=== PATIENT | female | born 2000 | race Hispanic/Latino ===

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

== ENCOUNTER 2019-10-02 14:54 | Outpatient (CLI) | payer MEDICAID ==
--- NOTE | 2019-10-02 15:53 | ULT ---
OB ULTRASOUND COMPLETE GREATER THAN 14 WEEKS: HISTORY: Evaluate anatomy and cervical length. FINDINGS: Single viable intrauterine fetus in vertex presentation. Placenta is anterior. heart rate 144 b.p.m. Amniotic fluid index 12.9 cm. Cervical length equals 3.9 cm. Anatomy: Visualized brain, 4-chamber heart, 3-vessel cord, stomach, bladder, kidneys, spine, and extremi ty regions are unremarkable as visualized. Biometry: BPD 5.0 cm-21 weeks 2 days Head circumference 19.1 cm-21 weeks 3 days Abdominal circumference 15.9 cm-21 weeks 1 day Femur length 3.5 cm-21 weeks 0 days IMPRESSION: Single viable intrauterine fetus 21 weeks 2 days, estimated date of delivery 02/10/2020, estimated fet al weight 393 gm. POS: TPC
== END 2019-10-02 14:55 | disposition home or self-care (01) ==
LOC: BICULT 14:54
PROVIDERS: ATTEND Family Medicine
DX: Z34.82 Encounter for supervision of other normal pregnancy, second trimester (principal); Z3A.21 21 weeks gestation of pregnancy
CPT/HCPCS: 76805

== ENCOUNTER 2019-12-07 11:59 | Day surgery (SDC) | payer MEDICAID, OTHER ==
[2019-12-07 13:26] VITALS: BMI 26.9
[2019-12-07] MEDS ORDERED: hydrALAZINE 20 MG/ML VIAL SLOW IVP PRN (14:04)
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
== END 2019-12-07 14:00 | disposition critical access hospital (66) ==
LOC: ERS 11:59 → L&D/OP 12:47
PROVIDERS: ATTEND Family Medicine
DX: O99.89 Other specified diseases and conditions complicating pregnancy, childbirth and the puerperium (principal); R10.2 Pelvic and perineal pain; O36.8130 Decreased fetal movements, third trimester, not applicable or unspecified; O99.513 Diseases of the respiratory system complicating pregnancy, third trimester; J45.909 Unspecified asthma, uncomplicated; Z79.899 Other long term (current) drug therapy; Z3A.33 33 weeks gestation of pregnancy; V89.2XXA Person injured in unspecified motor-vehicle accident, traffic, initial encounter
CPT/HCPCS: 99281; 99283

== ENCOUNTER 2020-01-24 12:38 | Day surgery (SDC) | payer OTHER ==
[2020-01-24 13:00] VITALS: BMI 27.4
--- NOTE | 2020-01-24 13:44 | PDOC.LDHP ---
Labor and Delivery H&P Chief complaint: other HPI: Pt is a 19 yo at 36.4 wks, LUZ MARIA 02/17/20, who presents for cramping in her legs, pelvic pressure with urination. She endorsed 3 week history of white discharge and a recent 1 week change in color to yellow/green without foul smell. She denies LOF, vaginal bleeding, hematuria, dysuria, increased urinary frequency, fever, chills, contractions. She has history of gonorrhea and chlamydia a few years ago. No other significant history during . PCP: [facility] Due date: 02/17/20 Grav: 2 Para: 1 OB History Details: Prior Current complications: none Past Medical History: asthma controlled with albuterol inhaler Current medications: none Previous surgical history: none Allergies/Adverse Reactions: Allergies Allergy/AdvReac Type Severity Reaction Status Date / Time No Known Allergies Allergy Verified 01/24/20 12:54 Social history: none (admitted to tobacco, alchol use prior to ) - Physical Exam Vital signs reviewed and normal: yes General: NAD Heart: RRR Lungs: CTAB Abdomen: other (pelvic TTP) Extremeties: no edema FHT: category 1, variability present - Vaginal Exam cm dilated: 2 Station: -3 - Plan Plan: observation in L&D -: 19 yo at 36.4 wks who presents for pelvic pressure w/ urination: # Term IUP 40/-3 # Vaginal Discharge, Pelvic Pressure # Hx of Gonorrhea, Chlamydia Infection - GCCH, VP3 pending - will not result for 24-48 hours. Pt has an appt with Dr. Byrd on 01/28/20. Follow up for results at this time. - UA WNL # Asthma - monitor # Pt unable to tolerate PNV's Dispo: discharge with close follow up to Dr. Byrd for results.
[2020-01-24 13:57] LABS: Bacteria/HPF None Seen HPF (None Seen); Bilirubin Negative (Negative); Blood, Urine 1+ (Negative); Clarity Clear (Clear); Glucose, Urine (Dipstick) Normal (Negative); Ketone, Urine Negative (Negative); Leukocyte Negative Leu/uL (Negative); Nitrite Negative (Negative); Protein, Urine (Dipstick) Negative (Neg-Trace); RBC/HPF 21-50 HPF (0-3); Specific Gravity, Urine 1.014 (1.002-1.036); Squamous Epithelial 0-3 HPF (0-3); Urobilinogen Normal mg/dL (Less than 2); WBC/HPF 0-3 HPF (0-3)
[2020-01-24 13:59] LABS: Urine Culture Reflex No No
[2020-01-26 21:08] LABS: GC by PCR Not Detected (NotDetected)
== END 2020-01-24 14:40 | disposition home or self-care (01) ==
LOC: L&D/OP 12:38
PROVIDERS: ATTEND Family Medicine
DX: O99.89 Other specified diseases and conditions complicating pregnancy, childbirth and the puerperium (principal); R10.2 Pelvic and perineal pain; N89.8 Other specified noninflammatory disorders of vagina; R25.2 Cramp and spasm; O99.513 Diseases of the respiratory system complicating pregnancy, third trimester; J45.909 Unspecified asthma, uncomplicated; Z87.891 Personal history of nicotine dependence; Z3A.36 36 weeks gestation of pregnancy
CPT/HCPCS: 81001; 87480; 87510; 87591; 87660; 99283

== ENCOUNTER 2020-02-06 14:32 | Day surgery (SDC) | payer OTHER ==
[2020-02-06] MEDS ORDERED: hydrALAZINE 20 MG/ML VIAL SLOW IVP PRN (15:24)
--- NOTE | 2020-02-06 15:25 | PDOC.LDHP ---
Labor and Delivery H&P Chief complaint: other (low back pain) HPI: 20 y/o @ 38.3 wks presents to L&D for low back pain that comes and goes for the day. The pain stolled and then came back more intense today. Pt states she took tylenol which did not help with the pain. @ 2 AM she woke up and noticed from mucus like vaginal d/c. denies vag irritation, pain, pressure or bleeding. Denies LOF, and does not think she is having ctx's. The pain does come and go and feels "tight in nature." Pt admits to decreased movements, last feeling her fetus move at 12 today. Pt was seen by Dr. Byrd on and reports her cervix exam to be a 2 at that time. PCP: [facility] Current gestational age (weeks): 38 (3 days ) Due date: 02/17/20 Grav: 2 Para: 1 Current complications: none Abnormal US findings: No (BPP 02/26 ) Past Medical History: no known medical problems Current medications: none (does not take pnv's) Previous surgical history: none Allergies/Adverse Reactions: Allergies Allergy/AdvReac Type Severity Reaction Status Date / Time No Known Allergies Allergy Verified 02/06/20 15:23 Social history: none (denies etoh, tobacco or drugs.) - Physical Exam Vital signs reviewed and normal: yes General: NAD Heart: RRR Lungs: CTAB Abdomen: gravid Extremeties: no edema FHT: category 1 (fht's) - Vaginal Exam cm dilated: 3 Effacement: 50% Station: -3 - Plan Plan: observation in L&D -: 20 y/o @ 38.3 presents to L&D with intermittent abd "tightness." 1. sIUP @ 38.3 ega - ctx Q3-4 min - FHT's 115 baseline with mod variability, accels present - SVE: /-3, plan to recheck in 2 hours. encouraged walking 2. contractions - TOCO monitoring - Q3-4 min 3. Decreased movements - BPP ordered: 02/26 - No movements felt since 12 today. Reports some movement after walking around the unit. Dispo: observe in L&D. Recheck SVE, if progressive change, admit for labor, d/c home if no change and fht reassuring with 02/26/ BPP. Care plan discussed with Dr. Vidales who is in agreement with above stated plan. Addendum - Attending - Attending Attestation Date/Time: 02/06/202107 I personally evaluated the patient and discussed the management with Dr. Hernandez. I agree with the History, Examination, Assessment and Plan documented above.
[2020-02-06 15:28] VITALS: BP 131/77; TEMP 98.3; BMI 30.3
--- NOTE | 2020-02-06 16:41 | PDOC.BPN ---
<Torri Hernandez - Last Filed: 02/06/20 16:40> - Brief Progress Note recheck cervix: SVE /-3, no change from previous check BPP 02/26 NST reactive send home with return precautions. Case discussed with Dr. Vidales who is in agreement with above plan. f/u with Dr. Byrd for routine pnc. <Rufino Vidales - Last Filed: 02/06/20 18:19> Addendum - Attending - Attending Attestation Date/Time: 02/06/20 840 I personally evaluated the patient and discussed the management with Dr. Hernandez. I agree with the History, Examination, Assessment and Plan documented above.
--- NOTE | 2020-02-07 00:28 | ULT ---
BIOPHYSICAL PROFILE: Date: 02/06/2020 INDICATION: Decreased movement. FINDINGS/IMPRESSION: Tone: 2 Breathin Movement: 2 Amniotic Fluid: 2 Total Score: 8/8 position: Vertex. Placenta: Anterior. Amniotic fluid: Adequate. HENOK recorded at 8.9 cm. heart rate: 158 bpm. POS: AGW
== END 2020-02-06 17:00 | disposition home health service (06) ==
LOC: L&D/OP 14:32
PROVIDERS: ATTEND Family Medicine
DX: O47.1 False labor at or after 37 completed weeks of gestation (principal); O99.89 Other specified diseases and conditions complicating pregnancy, childbirth and the puerperium; M54.5 Low back pain; O36.8130 Decreased fetal movements, third trimester, not applicable or unspecified; Z3A.38 38 weeks gestation of pregnancy; Z79.51 Long term (current) use of inhaled steroids
CPT/HCPCS: 76819

== ENCOUNTER 2020-02-07 17:27 | Inpatient (IN) | payer OTHER ==
[~2020-02-07 17:27] MED LIST: Bupivacaine HCl 0.5%/Epinephrine 1:200,000/PF 30 ml Vial ONE
[2020-02-07] MEDS ORDERED: hydrALAZINE 20 MG/ML VIAL SLOW IVP PRN ×2 (17:42→18:27)
--- NOTE | 2020-02-07 17:59 | PDOC.FPROB ---
FMR OB H&P: HPI - History of Present Illness Chief Complaint: leaking fluid Indentification: 20 yo at 38.4 wga History of Present Illness: Patient is here saying she woke up at 1645 and noticed her pants were soaked through with fluid. She smelled her pants and said it did not smell of urine. Since that time, she has noticed more leakage of fluid with each contraction. She feels her contractions are slightly more intense than before when she was here earlier today. She had timed two contractions around 1710 and they were 3 minutes apart. Otherwise, she denies loss of FM and VB. Primary Care Physician: Carson FMR OB H&P: Current - Care : 2 Para: 1001 Gestational age: 38.4 Due date: 02/17/2020 Dating Criteria: LMP Course/Complications: None. - OB Labs Blood type: O RH: positive Antibody Screen: negative HIV: negative RPR: negative HepBsAg: negative Rubella: immune GBS: negative Additional labs: history of positive gonorrhea, chlamydia, and trichomonas treated in this . FMR OB H&P: History - Past Medical History PMH: Asthma Anxiety - OB History OB History: x1, induced at 40 wga. - OXYACETYLENE WELDER History OXYACETYLENE WELDER History: Denies STIs - Surgical History Sx History: Denies - Social History Social History: Denies smoking, drinking, drugs. - Family History Family History: Denies. FMR OB H&P: Medications - Current Home Medications: Medication Instructions Recorded Confirmed Type Beclomethasone 40 mcg/puff [Qvar] 2 puff INH BID 08/09/16 02/07/20 History Allergies/Adverse Reactions: Allergies Allergy/AdvReac Type Severity Reaction Status Date / Time No Known Allergies Allergy Verified 02/06/20 15:23 FMR OB H&P: ROS - Review of Systems General: denies: fever/chills, fatigue Eyes: denies: vision changes ENT: denies: nasal congestion, sore throat Cardiovascular: denies: chest pain, edema Respiratory: denies: cough, shortness of breath Gastrointestinal: denies: abdominal pain, nausea, vomiting, diarrhea Genitourinary (Female): denies: dysuria Musculoskeletal: denies: pain Neurologic: denies: weakness Integumentary: denies: itching, rash Psychological: denies: depression, anxiety FMR OB H&P: Vital Signs - Maternal Vital signs: HR 82 - Heart Tones Baseline: 120 Variability: moderate Acceleration: present Deceleration: absent Category: category 1 [place] contractions every: 2-3 min FMR OB H&P: Physical Exam - Physical Exam General: NAD, awake, alert and oriented HEENT: normocephalic and atraumatic, MMM, conjunctiva clear, no scleral icterus , grossly normal vision, grossly normal hearing Neck: trachea midline Heart: RRR, normal S1/S2, no murmurs/rubs/gallops General: CTAB, no respiratory distress Abdomen: soft, gravid, fundus(cm) Musculoskeletal: pulses present Skin: no rash Lymphatic: no unusual bruising or bleeding Psychiatric: intact recent and remote memory, normal mood and affect - Pelvic Exam Deviation from normal: pooling in vaginal vault of clear fluid. SVE: 60/-2 Membranes: SROM Presentation: cephalic Estimated Weight: 6 lbs FMR OB H&P: A/P - Problem List (1) SROM (spontaneous rupture of membranes) Current Visit: Yes Status: Acute Code(s): [id number] - Disposition: admit to L&D for delivery. Discussion: Date/Time: 02/07/20 1757 SROM - patient ruptured, pooling on exam, amnisure positive - admit to L&D, augment labor as needed. - update Dr. Byrd with plan. This H&P was discussed with Dr. Souza, who agrees with the above documentation and plan. Signature: Maria L Hdez MD PGY2
[2020-02-07 18:15] LABS: Amnisure Test RUPTURE DETECTED (No Rupture)
[2020-02-07 18:16] LABS: Amnisure Internal Control QC ACCEPTABLE (ACCEPTABLE)
[2020-02-07] MEDS ORDERED: Acetaminophen 500 MG TAB PO PRN (18:27)
[2020-02-07] MEDS ORDERED: Ondansetron PF 4 MG/2 ML Vial IVP PRN ×2 (18:27→20:32)
[2020-02-07] MEDS ORDERED: Promethazine HCl 25 MG/ML VIAL IM PRN ×2 (18:27→20:32)
[2020-02-07] MEDS ORDERED: Butorphanol Tartrate 1 MG/ML VIAL SLOW IVP PRN (18:27)
[2020-02-07] MEDS ORDERED: Lidocaine 1% (PF) 30 ML VIAL SC PRN (18:27)
[2020-02-07] MEDS ORDERED: Ibuprofen 800 MG TAB PO PRN (18:27)
[2020-02-07 18:54] VITALS: BMI 28.5
[2020-02-07] MEDS: Lactated Ringer's 1,000 ML IV SCH ×2 (18:54→19:30)
[2020-02-07 19:16] LABS: Hemoglobin 13.1 g/dL (12.0-16.0); Mean Corpuscular Hemoglobin 30.1 pg (27.0-31.0); Mean Corpuscular Volume 91.4 fL (78.0-98.0); Mean Platelet Volume 8.7 fL (7.4-10.4); Platelet Count 312 thou/uL (130-400); RBC Distribution Width 12.1 % (11.5-14.5); Red Blood Cell (RBC) Count 4.36 mill/uL (4.20-5.40); White Blood Cell (WBC) Count 17.7 thou/uL (4.8-10.8)
[2020-02-07] MEDS ORDERED: Fentanyl 4 mcg/Bup 0.1% Cadd 100 ML ONE (19:16)
[2020-02-07 20:03] LABS: Syphilis Antibody Nonreactive (Nonreactive); Syphilis Antibody Index 0.02 S/CO (<1.00 Non-Reactive)
[2020-02-07 20:04] LABS: HBSAg Index 0.15 S/CO (0-0.99); Hep B Surf Ag Non-Reactive S/CO (NonReactive)
[2020-02-07] MEDS ORDERED: Acetaminophen 325 MG TAB PO PRN (20:32)
[2020-02-07] MEDS ORDERED: EPHEDRINE 25 MG/5 ML SYRINGE SLOW IVP PRN (20:32)
[2020-02-07] MEDS ORDERED: Lactated Ringer's 500 ML IV PRN (20:32)
[2020-02-07] MEDS ORDERED: Naloxone HCl 0.4 mg/ml Vial IVP PRN ×2 (20:32)
[2020-02-07] MEDS ORDERED: diphenhydrAMINE 50 MG/ML VIAL IVP PRN (20:32)
[2020-02-07] MEDS ORDERED: Fentanyl 4 mcg/Bupivacaine 0.1% Cassette 100 ML EPIDURAL SCH (20:45)
[2020-02-07] MEDS ORDERED: Communication Order-Pharmacy FS SCH (20:45)
[2020-02-08] MEDS: NS / Oxytocin 40 units/1000ml 1,000 ML IV PRN ×2 (01:08→02:30)
[2020-02-08] MEDS ORDERED: Benzocaine-Menthol 82.5 ML CAN TOP PRN (03:21)
[2020-02-08] MEDS ORDERED: Lanolin Ointment 7 GM TUBE TOP PRN (03:21)
[2020-02-08] MEDS ORDERED: NS / Oxytocin 40 units/1000ml 1,000 ML IV SCH (03:21)
[2020-02-08] MEDS ORDERED: Milk Of Magnesia 30 ML UDCUP PO PRN (03:21)
[2020-02-08] MEDS ORDERED: Ondansetron PF 4 MG/2 ML Vial IVP PRN (03:21)
[2020-02-08] MEDS ORDERED: HYDROcodone/Acetaminophen 5/325 mg Tablet PO PRN ×2 (03:21)
[2020-02-08] MEDS ORDERED: hydrALAZINE 20 MG/ML VIAL SLOW IVP PRN (03:21)
[2020-02-08] MEDS ORDERED: Bisacodyl 10 MG SUPP PR PRN (03:21)
[2020-02-08] MEDS ORDERED: diphenhydrAMINE 25 MG CAP PO PRN (03:21)
[2020-02-08 05:41] LABS: Hemoglobin 11.5 g/dL (12.0-16.0); Mean Corpuscular HGB CONC 33.6 g/dL (32.0-36.0); Mean Corpuscular Hemoglobin 30.3 pg (27.0-31.0); Mean Corpuscular Volume 90.4 fL (78.0-98.0); Mean Platelet Volume 8.8 fL (7.4-10.4); Platelet Count 263 thou/uL (130-400); White Blood Cell (WBC) Count 21.2 thou/uL (4.8-10.8)
[2020-02-08] MEDS: Ibuprofen 800 MG TAB PO SCH ×3 (06:10→21:05)
[2020-02-08] MEDS ORDERED: Sodium Chloride 0.9% 10 ML ONE (06:48)
[2020-02-08] MEDS ORDERED: Adacel (T-DAP) 0.5 ML SYRINGE IM ONE (09:00)
[2020-02-08] MEDS: Ferrous Sulfate 325 MG TAB PO SCH ×2 (09:40→17:36)
[2020-02-08] MEDS: Docusate Calcium (SURFAK) 240 MG CAP PO SCH ×2 (09:40→21:05)
[2020-02-08] MEDS: Prenatal Vitamin 1 TAB PO SCH (09:40)
[2020-02-09 00:36] VITALS: BP 110/69; TEMP 98.8
[2020-02-09] MEDS: Ibuprofen 800 MG TAB PO SCH (06:09)
[2020-02-09] MEDS: Prenatal Vitamin 1 TAB PO SCH (08:40)
[2020-02-09] MEDS: Docusate Calcium (SURFAK) 240 MG CAP PO SCH (08:40)
[2020-02-09] MEDS: Ferrous Sulfate 325 MG TAB PO SCH (08:41)
== END 2020-02-09 13:14 | disposition home or self-care (01) | DRG 807 ==
LOC: L&D/OP 17:27 → L&D 18:24 → 3SW 02-08 03:31
PROVIDERS: ADMIT Obstetrics & Gynecology; ATTEND Family Medicine
PROC: 10E0XZZ Delivery of Products of Conception, External Approach (ICD-10-PCS; principal; 2020-02-07)
DX: O99.52 Diseases of the respiratory system complicating childbirth (principal); Z37.0 Single live birth; O99.344 Other mental disorders complicating childbirth; F41.9 Anxiety disorder, unspecified; J45.909 Unspecified asthma, uncomplicated; Z3A.38 38 weeks gestation of pregnancy; Z79.51 Long term (current) use of inhaled steroids
CPT/HCPCS: 36415; 51702; 76819; 84112; 85027; 86780; 86850; 86900; 86901; 87340; 99285; J0670; J2270; J2550

== ENCOUNTER 2020-07-19 18:51 | Emergency (ER) | payer OTHER ==
[2020-07-20 03:03] LABS: SARS-CoV-2 MS2 Positive; SARS-CoV-2 N Gene Positive; SARS-CoV-2 S Gene Positive; SARS-CoV-2 by NAA DETECTED (NotDetected); SARS-CoV-2 orf1ab Positive
== END 2020-07-19 19:26 | disposition home or self-care (01) ==
LOC: ERS 18:51
DX: U07.1 COVID-19 (principal)
CPT/HCPCS: 87635; 99283; U0003

== ENCOUNTER 2020-09-12 10:56 | Outpatient (CLI) | payer OTHER ==
--- NOTE | 2020-09-12 11:40 | ULT ---
EXAM: OB ultrasound HISTORY: female patient. Evaluate anatomy. TECHNIQUE: Multiplanar grayscale and color Doppler transabdominal sonographic images are obtained. FINDINGS: There is a single intrauterine gestation in variable presentation. Cardiac Doppler demonstr ates heart tones with a heart rate of 140 beats per minute. The placenta is located anteriorly without evidence of placenta previa. There is a normal amount of amniotic fluid with an am niotic fluid index of 17.7 centimeters. The cervical length based on transabdominal imaging measures 4.1 centimeters. biometry measurements: BPD 4.88 cm -- 20 weeks 6 days HC 18.37 cm -- 20 weeks 6 days AC 16.12 cm -- 21 weeks 2 days FL 3.34 cm -- 20 weeks 4 days The estimated gestational age by ultrasound is 21 weeks with an LUZ MARIA on01/23/2021. Gestational age by th e last menstrual period is 21 weeks 2 days. The estimated weight by ultrasound is 382 g (13 ounces). This represents 24 percentile for feta l weight. A 4 chambered heart is visualized. The cerebellum, visualized portions of the spine, kidneys, u rinary bladder, visualized extremities, and cord insertion demonstrate a normal sonographic appearance. A three-vessel cord is not visualized, but there is flow on either side of the urinary bladder sugges ting a three-vessel cord.. No anomalies are seen. Adnexal structures are not well visualized on this exam. IMPRESSION: 1. Single intrauterine gestation in variable presentation with heart tones documented. Estimate d gestational age by ultrasound is 21 weeks. 2. Estimated weight is 382 g (13 ounces). 3. Amniotic fluid index is 17.7 centimeters.
== END 2020-09-12 10:57 | disposition home or self-care (01) ==
LOC: BICULT 10:56
PROVIDERS: ATTEND Family Medicine
DX: Z34.82 Encounter for supervision of other normal pregnancy, second trimester (principal); Z3A.21 21 weeks gestation of pregnancy
CPT/HCPCS: 76805